=== PATIENT | female | born 1945 | race Caucasian/White ===

== ENCOUNTER 2017-12-17 00:50 | Inpatient (IN) | payer MEDICARE, OTHER ==
[2017-12-17 01:16] LABS: ADD MAN DIFF? NO
[2017-12-17 01:17] LABS: WHITE BLOOD COUNT 21.1 10^3/ul (4.8-10.8)
[2017-12-17 01:17] LABS: ABNORMAL IP MESSAGE 1; BASOPHILS % 0.2 % (0.0-2.0); HEMATOCRIT 36.1 % (37.0-47.0); LYMPHOCYTES % 14.3 % (15.0-51.0); MEAN CORPUSCULAR HGB CONC 33.2 g/dl (32.0-37.0); MEAN CORPUSCULAR VOLUME 96.3 fl (82.0-101.0); MEAN PLATELET VOLUME 11.1 fl (7.4-10.4); MONOCYTE # 1.8 10^3/ul (0.3-0.9); MONOCYTES % 8.4 % (0.0-11.0); NEUTROPHIL # 16.1 10^3/ul (1.6-7.5); PLATELET COUNT 224 10^3/UL (140-415); RED BLOOD COUNT 3.75 10^6/ul (4.20-5.40); RED CELL DISTRIBUTION WIDTH 12.6 % (11.5-14.5)
[2017-12-17] MEDS: HEPARIN 1000 UNITS/ML 10 ML INJ IV (01:18)
[2017-12-17] MEDS: LACTATED RINGER'S 1,000 ML IV (01:18)
[2017-12-17] MEDS ORDERED: NORepinephrine 8MG/250 ML (PMX 250 ML (01:30)
[2017-12-17 01:38] LABS: ANION GAP 11 (8-16); BLOOD UREA NITROGEN 61 mg/dl (7-20); CALCIUM 7.6 mg/dl (8.4-10.2); CARBON DIOXIDE 19 mmol/L (21-31); CHLORIDE 106 mmol/L (97-110); CREATININE 1.69 mg/dl (0.44-1.00); GLUCOSE 322 mg/dl (70-220); POTASSIUM 4.3 mmol/L (3.5-5.1); SODIUM 132 mmol/L (135-144)
[2017-12-17 01:51] LABS: POSITIVE DIFF @See below
[2017-12-17 02:28] LABS: B-TYPE NATRIURETIC PEPTIDE 44800 PG/ML (0-125)
[2017-12-17] MEDS ORDERED: NITROGLYCERIN (IC) 100 MCG/ML INJ (02:31)
[2017-12-17] MEDS ORDERED: niCARdipine 25 MG INJ (02:31)
[2017-12-17] MEDS: ALTEPLASE (CATHFLO) 2 MG INJ CATHETER (03:00)
[2017-12-17] MEDS ORDERED: TICAGRELOR 90 MG TABLET (03:41)
[2017-12-17] MEDS ORDERED: HEPARIN 1000 UNITS/ML 10 ML INJ (03:41)
[2017-12-17] MEDS ORDERED: IODIXANOL LOCM 100 ML BTL (03:41)
[2017-12-17] MEDS ORDERED: IOHEXOL 350MG/ML 50 ML BTL (03:41)
[2017-12-17] MEDS ORDERED: morphine 2 MG INJ IV ×2 (04:00)
[2017-12-17] MEDS ORDERED: ACETAMINOPHEN 325 MG TAB PO (04:00)
[2017-12-17] MEDS ORDERED: OXYCODONE/ACETAMINOPHEN (5/325) TAB PO (04:00)
[2017-12-17] MEDS ORDERED: ACETAMINOPHEN 650MG/20.3ML CUP PO (04:00)
[2017-12-17] MEDS ORDERED: ONDANSETRON 4 MG INJ IV (04:00)
[2017-12-17] MEDS: EPTIFIBATIDE 100 ML IV (04:29)
[2017-12-17] MEDS: NORepinephrine 8MG/250 ML (PMX 250 ML IV (05:10)
[2017-12-17] MEDS: DOBUTamine/D5W 2 MG/ML DRIP 250 ML IV (05:14)
[2017-12-17 05:24] LABS: ADD MAN DIFF? NO
[2017-12-17 05:33] LABS: WHITE BLOOD COUNT 25.9 10^3/ul (4.8-10.8)
[2017-12-17 05:33] LABS: ABNORMAL IP MESSAGE 1; BASOPHIL # 0.1 10^3/ul (0.0-0.1); BASOPHILS % 0.2 % (0.0-2.0); EOSINOPHILS % 0.1 % (0.0-7.0); HEMATOCRIT 33.7 % (37.0-47.0); HEMOGLOBIN 10.9 g/dl (12.0-16.0); LYMPHOCYTES # 5.2 10^3/ul (0.8-2.9); LYMPHOCYTES % 19.9 % (15.0-51.0); MEAN CORPUSCULAR HEMOGLOBIN 31.5 pg (29.0-33.0); MEAN CORPUSCULAR HGB CONC 32.3 g/dl (32.0-37.0); MEAN CORPUSCULAR VOLUME 97.4 fl (82.0-101.0); MEAN PLATELET VOLUME 12.3 fl (7.4-10.4); MONOCYTE # 1.9 10^3/ul (0.3-0.9); MONOCYTES % 7.4 % (0.0-11.0); NEUTROPHIL # 18.4 10^3/ul (1.6-7.5); NEUTROPHILS % 70.7 % (39.0-77.0); PLATELET COUNT 240 10^3/UL (140-415); RED BLOOD COUNT 3.46 10^6/ul (4.20-5.40); RED CELL DISTRIBUTION WIDTH 12.7 % (11.5-14.5)
[2017-12-17 05:35] LABS: POSITIVE DIFF @See below
[2017-12-17] MEDS ORDERED: PHENYLephrine 20MG IN 250 ML 250 ML (05:56)
[2017-12-17 05:58] LABS: ANION GAP 22 (8-16); BLOOD UREA NITROGEN 56 mg/dl (7-20); CALCIUM 7.3 mg/dl (8.4-10.2); CHLORIDE 107 mmol/L (97-110); CREATINE KINASE 620 IU/L (23-200); CREATININE 1.74 mg/dl (0.44-1.00); SODIUM 131 mmol/L (135-144)
[2017-12-17] MEDS: SOD CHLORIDE 0.9% 250 ML IV (06:07)
[2017-12-17 06:09] LABS: CARBON DIOXIDE 8 mmol/L (21-31); GLUCOSE 422 mg/dl (70-220)
[2017-12-17 06:11] LABS: CK INDEX 2.9
[2017-12-17] MEDS: PHENYLephrine 20MG IN 250 ML 250 ML IV (06:17)
[2017-12-17] MEDS ORDERED: PHENYLephrine 40 MG in DEXTROSE 5% 496 ML IV (06:30)
[2017-12-17] MEDS ORDERED: DOBUTamine/D5W 1 MG/ML DRIP 250 ML IV (07:30)
[2017-12-17] MEDS: SOD CHLORIDE 0.9% 1,000 ML IV (08:00)
[2017-12-17] MEDS ORDERED: NORepinephrine 8MG/250 ML (PMX 250 ML IV (08:00)
[2017-12-17] MEDS: ENOXAPARIN 30 MG/0.3 ML SYG SC (09:00)
[2017-12-17] MEDS: ASPIRIN (EC) 81 MG TAB PO (09:00)
[2017-12-17] MEDS ORDERED: EPINEPHrine 4 MG in SOD CHLORIDE 0.9% 246 ML IV (09:00)
[2017-12-17] MEDS: TICAGRELOR 90 MG TABLET PO (09:00)
[2017-12-17] MEDS ORDERED: DOPamine-D5W 1.6 MG/ML 250 ML (09:08)
[2017-12-17] MEDS ORDERED: DOBUTamine/D5W 2 MG/ML DRIP 250 ML IV (09:30)
[2017-12-17] MEDS ORDERED: DOPamine-D5W 1.6 MG/ML 250 ML IV (09:30)
[2017-12-17] MEDS: EPINEPHrine 0.1 MG/ML SYG IV (09:56)
[2017-12-17 16:54] LABS: HEMOGLOBIN A1C 6.9 % (0-5.9)
[2017-12-17] MEDS ORDERED: ATORVASTATIN 80 MG TAB PO (21:00)
== END 2017-12-17 09:31 | disposition expired | DRG 246 ==
LOC: ICU 01:54 → E/R 00:50 → CCL 01:40 → SDS 01:40 → CCL 04:37 → ICU 03:14
PROC: 027034Z Dilation of Coronary Artery, One Artery with Drug-eluting Intraluminal Device, Percutaneous Approach (ICD-10-PCS; 2017-12-17 01:30)
PROC: 02C03ZZ Extirpation of Matter from Coronary Artery, One Artery, Percutaneous Approach (ICD-10-PCS; 2017-12-17 01:30)
PROC: 4A023N7 Measurement of Cardiac Sampling and Pressure, Left Heart, Percutaneous Approach (ICD-10-PCS; 2017-12-17 01:30)
PROC: B2031ZZ Plain Radiography of Multiple Coronary Artery Bypass Grafts using Low Osmolar Contrast (ICD-10-PCS; 2017-12-17 01:30)
PROC: 05HM33Z Insertion of Infusion Device into Right Internal Jugular Vein, Percutaneous Approach (ICD-10-PCS; principal; 2017-12-17 01:50)
PROC: 0BH17EZ Insertion of Endotracheal Airway into Trachea, Via Natural or Artificial Opening (ICD-10-PCS; 2017-12-17 01:50)
DX: I21.09 ST elevation (STEMI) myocardial infarction involving other coronary artery of anterior wall (principal); J96.91 Respiratory failure, unspecified with hypoxia; E87.1 Hypo-osmolality and hyponatremia; I95.9 Hypotension, unspecified; E11.9 Type 2 diabetes mellitus without complications; R57.0 Cardiogenic shock; N28.9 Disorder of kidney and ureter, unspecified; I25.10 Atherosclerotic heart disease of native coronary artery without angina pectoris
CPT/HCPCS: 31500; 36415; 71045; 80048; 82550; 82553; 82962; 83036; 83880; 84484; 85025; 92950; 93005; 93454; 94002; 96374; 99291-25; J1250